=== PATIENT | male | born 1980 | race Caucasian/White ===

== ENCOUNTER 2020-01-16 07:14 | Emergency (ER) | payer BC ==
--- NOTE | 2020-01-16 07:30 | ER ---
Nurse's Notes [facility] Name: Rolly Chen Age: 39 yrs Sex: Male : 1980 Arrival Date: 01/16/2020 Time: 07:16 Bed 17 Private MD: Diagnosis: Cellulitis of face;Urticaria, unspecified Presentation: 01/15 07:23 Chief complaint: Patient states: rash on skin around eyes, started Tuesday, no other iw area affected. 07:23 Method Of Arrival: Ambulatory iw 07:23 Coronavirus screen: At this time, the client does not indicate any symptoms associated iw with coronavirus-19. Ebola Screen: Patient negative for fever greater than or equal to 101.5 degrees Fahrenheit, and additional compatible Ebola Virus Disease symptoms Patient denies exposure to infectious person. Patient denies travel to an Ebola-affected area in the 21 days before illness onset. No symptoms or risks identified at this time. Initial Sepsis Screen: Does the patient meet any 2 criteria? No. Patient's initial sepsis screen is negative. Does the patient have a suspected source of infection? No. Patient's initial sepsis screen is negative. Risk Assessment: Do you want to hurt yourself or someone else? Patient reports no desire to harm self or others. 07:23 Acuity: ROXANNE 5 iw 07:36 Onset of symptoms was January 12, 2020. iw Historical: - Allergies: 07:25 No Known Allergies; iw - Home Meds: 07:25 None [Active]; iw - PMHx: 07:25 None; iw - PSHx: 07:25 None; iw - Immunization history:: Adult Immunizations. - Social history:: Smoking status: . - Family history:: not pertinent. - Hospitalizations: : No recent hospitalization is reported. Screenin:26 Abuse screen: Denies threats or abuse. Denies injuries from another. Nutritional iw screening: No deficits noted. Tuberculosis screening: No symptoms or risk factors identified. Fall Risk None identified. Assessment: 07:25 General: Appears in no apparent distress. comfortable, Behavior is calm, cooperative. iw Pain: Denies pain. Neuro: Level of Consciousness is awake, alert, obeys commands, Oriented to person, place, time, situation, Moves all extremities. Full function. Cardiovascular: Patient's skin is warm and dry. Respiratory: Respiratory effort is even, unlabored, Respiratory pattern is regular, symmetrical. GI: No signs and/or symptoms were reported involving the gastrointestinal system. Derm: Skin is intact, Rash noted that is red, urticaria, on face. Musculoskeletal: Range of motion: intact in all extremities. Vital Signs: 07:23 BP 147 / 104; Pulse 98; Resp 16 S; Temp 98.0; Pulse Ox 100% on R/A; iw ED Course: 07:16 Patient arrived in ED. as 07:18 Josh Ruggiero MD is Attending Physician. rn 07:24 Triage completed. iw 07:25 Arm band placed on. iw 07:25 Patient has correct armband on for positive identification. iw 07:31 June Wise RN is Primary Nurse. iw 07:36 No provider procedures requiring assistance completed. Patient did not have IV access iw during this emergency room visit. Administered Medications: 07:31 Drug: Decadron 10 mg Route: IM; Site: right deltoid; iw 07:41 Follow up: Response: No adverse reaction iw 07:32 Drug: Bactrim (160 mg-800 mg (DS) 1 tablet Route: PO; iw 07:41 Follow up: Response: No adverse reaction iw Outcome: 07:29 Discharge ordered by . rn 07:36 Discharged to home ambulatory. iw 07:36 Condition: good 07:36 Discharge instructions given to patient, Instructed on discharge instructions, follow up and referral plans. Demonstrated understanding of instructions, follow-up care, medications, Prescriptions given X 2. 07:37 Patient left the ED. iw Signatures: Neisha Avendaño as June Wise, KAILA RN iw Josh Ruggiero MD MD rn
--- NOTE | 2020-01-16 07:30 | EDPHYS ---
Physician Documentation [facility] Name: Rolly Chen Age: 39 yrs Sex: Male : 1980 Arrival Date: 01/16/2020 Time: 07:16 Bed 17 Private MD: ED Physician Josh Ruggiero HPI: 01/15 07:25 This 39 yrs old Male presents to ER via Ambulatory with complaints of Rash. rn 07:25 The patient's rash thought to be caused by an unknown cause. The rash is located on the rn face. The rash can be described as erythematous, urticarial. 07:25 Onset: The symptoms/episode began/occurred 4 day(s) ago. Severity of symptoms: At their rn worst the symptoms were mild in the emergency department the symptoms are unchanged. The patient has not experienced similar symptoms in the past. Reports 4 days ago began to notice red splotches around eyes, feels burning and itchy, both eyes, no injury or splash/chemical exposure, concerned maybe glasses had something on them, vision ok. No fever. No rash anywhere else. + itchy. No medications or medical problems. . Historical: - Allergies: 07:25 No Known Allergies; iw - Home Meds: 07:25 None [Active]; iw - PMHx: 07:25 None; iw - PSHx: 07:25 None; iw - Immunization history:: Adult Immunizations. - Social history:: Smoking status: . - Family history:: not pertinent. - Hospitalizations: : No recent hospitalization is reported. ROS: 07:25 Constitutional: Negative for fever, chills, and weight loss, Eyes: Negative for injury, rn and discharge, Neck: Negative for injury, pain, and swelling, Cardiovascular: Negative for chest pain, palpitations, and edema, Respiratory: Negative for shortness of breath, cough, wheezing, and pleuritic chest pain, Abdomen/GI: Negative for abdominal pain, nausea, vomiting, diarrhea, and constipation, MS/Extremity: Negative for injury and deformity, Skin: + rash and redness around eyes. Neuro: Negative for headache, weakness, numbness, tingling, and seizure. Exam: 07:25 Constitutional: This is a well developed, well nourished patient who is awake, alert, rn and in no acute distress. Head/Face: Normocephalic, atraumatic. Eyes: Pupils equal round and reactive to light, extra-ocular motions intact. Lids and lashes normal. Conjunctiva and sclera are non-icteric and not injected. Cornea within normal limits. Bilateral periorbital areas with urticarial lesions, no pustules, no drainage, no fluctuance, + mild edema. ENT: No intraoral lesions. Respiratory: No increased work of breathing, no retractions or nasal flaring. Skin: Warm, dry Vital Signs: 07:23 BP 147 / 104; Pulse 98; Resp 16 S; Temp 98.0; Pulse Ox 100% on R/A; iw MDM: 07:18 Patient medically screened. rn 07:25 Differential diagnosis: allergic reaction, cellulitis, impetigo. Data reviewed: vital rn signs, nurses notes, and as a result, I will discharge patient. Counseling: I had a detailed discussion with the patient and/or guardian regarding: the historical points, exam findings, and any diagnostic results supporting the discharge/admit diagnosis, the need for outpatient follow up, to return to the emergency department if symptoms worsen or persist or if there are any questions or concerns that arise at home. Special discussion: I discussed with the patient/guardian in detail that at this point there is no indication for admission to the hospital. It is understood, however, that if the symptoms persist or worsen the patient needs to return immediately for re-evaluation. Administered Medications: 07:31 Drug: Decadron 10 mg Route: IM; Site: right deltoid; iw 07:41 Follow up: Response: No adverse reaction iw 07:32 Drug: Bactrim (160 mg-800 mg (DS) 1 tablet Route: PO; iw 07:41 Follow up: Response: No adverse reaction iw Disposition: 01/16/20 07:29 Discharged to Home. Impression: Cellulitis of face, Urticaria, unspecified. - Condition is Stable. - Discharge Instructions: Cellulitis, Adult, Rash. - Prescriptions for Prednisone 20 mg Oral Tablet - take 3 tablet by ORAL route once daily for 5 days; 15 tablet. Bactrim DS 800- 160 mg Oral Tablet - take 1 tablet by ORAL route every 12 hours for 10 days; 20 tablet. - Medication Reconciliation Form, Thank You Letter, Antibiotic Education, Prescription Opioid Use form. - Follow up: Private Physician; When: As needed; Reason: Recheck today's complaints, Re-evaluation by your physician. - Problem is new. - Symptoms are unchanged. Signatures: June Wise RN RN iw Josh Ruggiero MD MD internet marketing intern: (The following items were deleted from the chart) 07:37 07:29 01/16/2020 07:29 Discharged to Home. Impression: Cellulitis of face; Urticaria, iw unspecified. Condition is Stable. Forms are Medication Reconciliation Form, Thank You Letter, Antibiotic Education, Prescription Opioid Use. Follow up: Private Physician; When: As needed; Reason: Recheck today's complaints, Re-evaluation by your physician. Problem is new. Symptoms are unchanged. rn
[2020-01-16] MEDS ORDERED: dexAMETHasone 10 MG/ML VIAL ONE (07:39)
[2020-01-16] MEDS ORDERED: SMZ./TMP. 800/160 MG TABLET ONE (07:39)
[2020-01-16 07:41] VITALS: BP 147/104; TEMP 98; O2SAT 100
== END 2020-01-16 07:37 | disposition home or self-care (01) ==
LOC: ER 07:14
DX: L03.211 Cellulitis of face (principal); L50.9 Urticaria, unspecified
CPT/HCPCS: 96372; 99283; J1100

== ENCOUNTER 2020-03-12 12:46 | Emergency (ER) | payer BC ==
--- NOTE | 2020-03-12 14:02 | ER ---
Nurse's Notes [facility] Name: Rolly Chen Age: 39 yrs Sex: Male : 1980 Arrival Date: 03/12/2020 Time: 12:48 Bed 14 Private MD: Diagnosis: Allergic contact dermatitis Presentation: 03/12 13:09 Chief complaint: Patient states: "I have this rash popping up and I don't know why.". jd3 Coronavirus screen: At this time, the client does not indicate any symptoms associated with coronavirus-19. Ebola Screen: Patient negative for fever greater than or equal to 101.5 degrees Fahrenheit, and additional compatible Ebola Virus Disease symptoms. Initial Sepsis Screen: Does the patient meet any 2 criteria? No. Patient's initial sepsis screen is negative. Does the patient have a suspected source of infection? No. Patient's initial sepsis screen is negative. Risk Assessment: Do you want to hurt yourself or someone else? Patient reports no desire to harm self or others. Onset of symptoms was March 11, 2020. 13:09 Method Of Arrival: Ambulatory jd3 13:09 Acuity: ROXANNE 4 jd3 Historical: - Allergies: 13:10 No Known Allergies; jd3 - Home Meds: 13:10 None [Active]; jd3 - PMHx: 13:10 None; jd3 - PSHx: 13:10 left ankle; back; jd3 - Immunization history:: Adult Immunizations up to date. - Social history:: Smoking status: Patient denies any tobacco usage or history of. Screenin:50 Abuse screen: Denies threats or abuse. Denies injuries from another. Nutritional ca1 screening: No deficits noted. Tuberculosis screening: No symptoms or risk factors identified. Fall Risk None identified. Assessment: 13:50 General: Appears in no apparent distress. comfortable, Behavior is calm, cooperative, ca1 appropriate for age. Pain: Denies pain. Neuro: Level of Consciousness is awake, alert, obeys commands, Oriented to person, place, time, situation. Derm: Skin is intact, is healthy with good turgor, Skin is pink, warm \\T\\ dry. Rash noted that is red, urticaria, on right eye, left eye, right arm and left arm. Musculoskeletal: Circulation, motion, and sensation intact. Capillary refill < 3 seconds. 14:23 Reassessment: Patient appears in no apparent distress at this time. Patient is alert, ca1 oriented x 3, equal unlabored respirations, skin warm/dry/pink. Patient states feeling better. Vital Signs: 13:10 BP 130 / 90; Pulse 84; Resp 17 S; Temp 97.3(TE); Pulse Ox 98% on R/A; Weight 113.4 kg jd3 (R); Height 6 ft. 0 in. (182.88 cm) (R); Pain 0/10; 14:23 BP 126 / 84; Pulse 81; Resp 16 S; Pulse Ox 98% on R/A; ca1 13:10 Body Mass Index 33.91 (113.40 kg, 182.88 cm) jd3 ED Course: 12:48 Patient arrived in ED. as 13:10 Triage completed. jd3 13:12 Arm band placed on. jd3 13:46 Missy Elliott FNP-C is [facility]. kb 13:46 Josh Ruggiero MD is Attending Physician. kb 13:50 Patient has correct armband on for positive identification. Bed in low position. Call ca1 light in reach. Side rails up X 1. Pulse ox on. NIBP on. 13:53 Nicky Gongora RN is Primary Nurse. ca1 14:05 No provider procedures requiring assistance completed. Patient did not have IV access ca1 during this emergency room visit. Administered Medications: 14:03 Drug: SOLU-Medrol 125 mg Route: IM; Site: right gluteus; ca1 14:23 Follow up: Response: No adverse reaction ca1 Outcome: 14:01 Discharge ordered by . kb 14:25 Discharged to home ambulatory. ca1 14:25 Condition: stable 14:25 Discharge instructions given to patient, Instructed on discharge instructions, follow up and referral plans. medication usage, Demonstrated understanding of instructions, follow-up care, medications, Prescriptions given X 2. 14:26 Patient left the ED. ca1 Signatures: Missy Elliott FNP-C FNP-Ckb Martinez, Amelia as Davies, Jonathon, RN RN jd3 Nicky Gongora RN RN ca1 Corrections: (The following items were deleted from the chart) 13:13 13:10 Pulse 84bpm; Resp 17bpm; Pulse Ox 98% RA; Temp 97.3F Temporal; 113.4 kg Reported; jd3 Height 6 ft. 0 in. Reported; BMI: 33.9; Pain 0/10; jd3
--- NOTE | 2020-03-12 14:02 | EDPHYS ---
Physician Documentation [facility] Name: Rolly Chen Age: 39 yrs Sex: Male : 1980 Arrival Date: 03/12/2020 Time: 12:48 Bed 14 Private MD: ED Physician Josh Ruggiero HPI: 03/12 13:59 This 39 yrs old Male presents to ER via Ambulatory with complaints of Rash, kb Eye Swelling. 13:59 The patient's rash thought to be caused by an unknown cause. The rash is located on the kb right eye, left eye, right arm and left arm. The rash can be described as erythematous. Onset: The symptoms/episode began/occurred last night. Associated signs and symptoms: Pertinent positives: itching, Pertinent negatives: burning sensation, difficulty breathing, fever, nausea, Pain swelling of lips, swelling of throat, swelling of tongue, vomiting, wheezing. Severity of symptoms: At their worst the symptoms were mild in the emergency department the symptoms are unchanged. The patient has experienced a previous episode. The patient has not recently seen a physician. Pt reports he noticed itching to arms and eyes last night, this morning he had a rash to those areas. States he has had this before, came here and got a shot that helped a lot. Came in now before it got worse. Historical: - Allergies: 13:10 No Known Allergies; jd3 - Home Meds: 13:10 None [Active]; jd3 - PMHx: 13:10 None; jd3 - PSHx: 13:10 left ankle; back; jd3 - Immunization history:: Adult Immunizations up to date. - Social history:: Smoking status: Patient denies any tobacco usage or history of. ROS: 13:58 Constitutional: Negative for fever, chills, and weight loss, Cardiovascular: Negative kb for chest pain, palpitations, and edema, Respiratory: Negative for shortness of breath, cough, wheezing, and pleuritic chest pain, Abdomen/GI: Negative for abdominal pain, nausea, vomiting, diarrhea, and constipation, Back: Negative for injury and pain, MS/Extremity: Negative for injury and deformity, Neuro: Negative for headache, weakness, numbness, tingling, and seizure. 13:58 Skin: Positive for rash, of the right eye, left eye, right arm and left arm. Exam: 13:58 Constitutional: This is a well developed, well nourished patient who is awake, alert, kb and in no acute distress. Head/Face: Normocephalic, atraumatic. Chest/axilla: Normal chest wall appearance and motion. Nontender with no deformity. No lesions are appreciated. Cardiovascular: Regular rate and rhythm with a normal S1 and S2. No gallops, murmurs, or rubs. Normal PMI, no JVD. No pulse deficits. Respiratory: Lungs have equal breath sounds bilaterally, clear to auscultation and percussion. No rales, rhonchi or wheezes noted. No increased work of breathing, no retractions or nasal flaring. Abdomen/GI: Soft, non-tender, with normal bowel sounds. No distension or tympany. No guarding or rebound. No evidence of tenderness throughout. MS/ Extremity: Pulses equal, no cyanosis. Neurovascular intact. Full, normal range of motion. Neuro: Awake and alert, GCS 15, oriented to person, place, time, and situation. Cranial nerves II-XII grossly intact. Motor strength 5/5 in all extremities. Sensory grossly intact. Cerebellar exam normal. Normal gait. 13:58 Skin: rash a mild rash is noted, consistent with contact dermatitis, on the left arm and right arm and left eye and right eye. Vital Signs: 13:10 BP 130 / 90; Pulse 84; Resp 17 S; Temp 97.3(TE); Pulse Ox 98% on R/A; Weight 113.4 kg jd3 (R); Height 6 ft. 0 in. (182.88 cm) (R); Pain 0/10; 14:23 BP 126 / 84; Pulse 81; Resp 16 S; Pulse Ox 98% on R/A; ca1 13:10 Body Mass Index 33.91 (113.40 kg, 182.88 cm) jd3 MDM: 13:46 Patient medically screened. kb 13:58 Data reviewed: vital signs, nurses notes. Data interpreted: Pulse oximetry: on room air kb is 98 %. Interpretation: normal. Counseling: I had a detailed discussion with the patient and/or guardian regarding: the historical points, exam findings, and any diagnostic results supporting the discharge/admit diagnosis, the need for outpatient follow up, a family practitioner, to return to the emergency department if symptoms worsen or persist or if there are any questions or concerns that arise at home. Administered Medications: 14:03 Drug: SOLU-Medrol 125 mg Route: IM; Site: right gluteus; ca1 14:23 Follow up: Response: No adverse reaction ca1 Disposition: 16:31 Co-signature as Attending Physician, Josh Ruggiero MD. rn Disposition: 03/12/20 14:01 Discharged to Home. Impression: Allergic contact dermatitis. - Condition is Stable. - Discharge Instructions: Contact Dermatitis, [id number]. - Prescriptions for Pepcid 20 mg Oral Tablet - take 1 tablet by ORAL route every 12 hours for 5 days; 10 tablet. Prednisone 20 mg Oral Tablet - take 1 tablet by ORAL route once daily for 5 days; 5 tablet. - Medication Reconciliation Form, Thank You Letter, Antibiotic Education, Prescription Opioid Use form. - Follow up: Emergency Department; When: As needed; Reason: Worsening of condition. Follow up: Private Physician; When: 2 - 3 days; Reason: Recheck today's complaints, Continuance of care, Re-evaluation by your physician. Signatures: Missy Elliott, SAP HANA DEVELOPER-C SAP HANA DEVELOPER-Ckb Josh Ruggiero MD MD rn Davies, Jonathon, RN RN jd3 Nicky Gongora RN RN ca1 Corrections: (The following items were deleted from the chart) 14:26 14:01 03/12/2020 14:01 Discharged to Home. Impression: Allergic contact dermatitis. ca1 Condition is Stable. Forms are Medication Reconciliation Form, Thank You Letter, Antibiotic Education, Prescription Opioid Use. Follow up: Emergency Department; When: As needed; Reason: Worsening of condition. Follow up: Private Physician; When: 2 - 3 days; Reason: Recheck today's complaints, Continuance of care, Re-evaluation by your physician. kb
[2020-03-12] MEDS ORDERED: METHYLPREDNISOLONE 125 MG INJ ONE (14:13)
[2020-03-12 15:07] VITALS: TEMP 97.3; O2SAT 98
[2020-03-12 15:09] VITALS: BP 126/84
== END 2020-03-12 14:26 | disposition home or self-care (01) ==
LOC: ER 12:46
DX: L23.9 Allergic contact dermatitis, unspecified cause (principal)
CPT/HCPCS: 96372; 99283; J2930

== ENCOUNTER 2020-03-16 13:56 | Emergency (ER) | payer BC ==
[2020-03-16] MEDS ORDERED: dexAMETHasone 4 MG/ML VIAL ONE (14:33)
[2020-03-16] MEDS ORDERED: DIPHENHYDRAMINE 25 MG TAB/CAP ONE (14:33)
[2020-03-16] MEDS ORDERED: FAMOTIDINE 20 MG TAB ONE (14:33)
--- NOTE | 2020-03-16 16:17 | EDPHYS ---
Physician Documentation [facility] Name: Rolly Chen Age: 39 yrs Sex: Male : 1980 Arrival Date: 03/16/2020 Time: 13:58 Bed 18 Private MD: Ata Lombardi R ED Physician Deejay Muniz HPI: 03/16 14:31 This 39 yrs old Male presents to ER via Ambulatory with complaints of Rash. pm1 14:31 The patient's rash thought to be caused by an unknown cause. The rash is located on the pm1 chest, right arm, left arm and neck. The rash can be described as urticarial. Onset: The symptoms/episode began/occurred 5 day(s) ago. Associated signs and symptoms: Pertinent positives: itching, Pertinent negatives: fever, swelling of lips, swelling of throat, swelling of tongue, vomiting, wheezing. Severity of symptoms: in the emergency department the symptoms are worse rash appeared to bilateral arms. Treatment given at home: just finished prescription medications of steroid and pepcid today. The patient has been recently seen at the [facility] Emergency Department, last week, for similar complaints. Historical: - Allergies: 14:13 No Known Allergies; ll1 - PSHx: 14:13 left ankle; back; ll1 - Immunization history:: Flu vaccine is not up to date. - Social history:: Smoking status: Patient denies any tobacco usage or history of. ROS: 14:31 Constitutional: Negative for fever, chills, and weight loss, Cardiovascular: Negative pm1 for chest pain, palpitations, and edema, Respiratory: Negative for shortness of breath, cough, wheezing, and pleuritic chest pain, Abdomen/GI: Negative for abdominal pain, nausea, vomiting, diarrhea, and constipation. 14:31 Back: Negative for injury and pain, MS/Extremity: Negative for injury and deformity. pm1 14:31 Neuro: Negative for headache, weakness, numbness, tingling, and seizure. 14:31 Skin: Positive for rash, of the right arm and left arm and neck and chest. Exam: 14:31 Constitutional: This is a well developed, well nourished patient who is awake, alert, pm1 and in no acute distress. Head/Face: Normocephalic, atraumatic. 14:31 Cardiovascular: Exam negative for acute changes, Rate: normal, Rhythm: regular, Pulses: no pulse deficits are appreciated. 14:31 Respiratory: Exam negative for acute changes, respiratory distress, shortness of breath. 14:31 Skin: Appearance: normal except for affected area, consistent with urticaria, on the left arm and right arm and chest and neck. 14:31 Neuro: Exam negative for acute changes, Orientation: is normal, Mentation: is normal, Motor: is normal, moves all fours. Vital Signs: 14:13 BP 143 / 77; Pulse 100; Resp 18; Temp 98.0; Pulse Ox 100% on R/A; Pain 0/10; ll1 16:40 BP 157 / 101; Pulse 82; Resp 17; Pulse Ox 100% ; Pain 0/10; ll1 MDM: 14:08 Patient medically screened. pm1 16:16 Data reviewed: vital signs. Data interpreted: Pulse oximetry: on room air is 100 %. pm1 Interpretation: normal. Counseling: I had a detailed discussion with the patient and/or guardian regarding: the historical points, exam findings, and any diagnostic results supporting the discharge/admit diagnosis, the need for outpatient follow up, for definitive care, an allergy/front office specialist, to return to the emergency department if symptoms worsen or persist or if there are any questions or concerns that arise at home. Administered Medications: 14:31 Drug: Decadron 10 mg Route: IM; Site: right gluteus; ll1 16:30 Follow up: Response: No adverse reaction; RASS: Alert and Calm (0) ll1 14:31 Drug: Pepcid 20 mg Route: PO; ll1 16:40 Follow up: Response: No adverse reaction; RASS: Alert and Calm (0) ll1 14:31 Drug: Benadryl 25 mg Route: PO; ll1 16:40 Follow up: Response: No adverse reaction; RASS: Alert and Calm (0) ll1 Disposition: 03/17 08:58 Co-signature as Attending Physician, Deejay Muniz MD I agree with the assessment and richelle plan of care. Disposition: 03/16/20 16:17 Discharged to Home. Impression: Urticaria, unspecified. - Condition is Stable. - Discharge Instructions: Hives, Rash. - Prescriptions for Benadryl 25 mg Oral Capsule - take 1 capsule by ORAL route every 6 hours As needed; 30 tablet. Pepcid 20 mg Oral Tablet - take 1 tablet by ORAL route every 12 hours for 10 days; 20 tablet. Medrol (Rakesh) 4 mg Oral Tablets, Dose Pack - take 1 tablet by ORAL route as directed - follow package instructions; 1 packet. - Medication Reconciliation Form, Thank You Letter, Antibiotic Education, Prescription Opioid Use form. - Follow up: Emergency Department; When: As needed; Reason: Worsening of condition. Follow up: Private Physician; When: 2 - 3 days; Reason: Recheck today's complaints, Continuance of care, Re-evaluation by your physician. - Problem is new. - Symptoms have improved. Signatures: Deejay Muniz MD MD cha Marinas, Patrick, NP SHOES HAND SEWER pm1 Randal Otero RN RN ll1 Corrections: (The following items were deleted from the chart) 03/16 16:40 16:17 03/16/2020 16:17 Discharged to Home. Impression: Urticaria, unspecified. ll1 Condition is Stable. Forms are Medication Reconciliation Form, Thank You Letter, Antibiotic Education, Prescription Opioid Use. Follow up: Emergency Department; When: As needed; Reason: Worsening of condition. Follow up: Private Physician; When: 2 - 3 days; Reason: Recheck today's complaints, Continuance of care, Re-evaluation by your physician. Problem is new. Symptoms have improved. pm1
--- NOTE | 2020-03-16 16:17 | ER ---
Nurse's Notes [facility] Name: Rolly Chen Age: 39 yrs Sex: Male : 1980 Arrival Date: 03/16/2020 Time: 13:58 Bed 18 Private MD: Ata Lombardi R Diagnosis: Urticaria, unspecified Presentation: 03/16 14:13 Chief complaint: Patient states: Rash to upper body since last visit here. Rash has ll1 spread down both arms and into pelvic region. + itching. Coronavirus screen: Client denies travel out of the [place] in the last 14 days. At this time, the client does not indicate any symptoms associated with coronavirus-19. Ebola Screen: Patient denies travel to an Ebola-affected area in the 21 days before illness onset. Initial Sepsis Screen: Does the patient meet any 2 criteria? HR > 90 bpm. No. Patient's initial sepsis screen is negative. Does the patient have a suspected source of infection? Yes: Skin breakdown/wound. Risk Assessment: Do you want to hurt yourself or someone else? Patient reports no desire to harm self or others. Onset of symptoms is unknown. 14:13 Method Of Arrival: Ambulatory ll1 14:13 Acuity: ROXANNE 3 ll1 Triage Assessment: 14:15 General: Appears uncomfortable, Behavior is calm, cooperative, appropriate for age. ll1 Historical: - Allergies: 14:13 No Known Allergies; ll1 - PSHx: 14:13 left ankle; back; ll1 - Immunization history:: Flu vaccine is not up to date. - Social history:: Smoking status: Patient denies any tobacco usage or history of. Screenin:14 Abuse screen: Denies threats or abuse. Nutritional screening: No deficits noted. ll1 Tuberculosis screening: No symptoms or risk factors identified. Fall Risk None identified. Total [place] Fall Scale indicates No Risk (0-24 pts). Assessment: 14:15 General: Appears in no apparent distress. Behavior is calm, cooperative, appropriate ll1 for age. Pain: Denies pain. Neuro: No deficits noted. Cardiovascular: No deficits noted. Respiratory: No deficits noted. Derm: Rash noted that is red, raised, urticaria, Reports rash to arms/trunk that has spread to waistline now. Vital Signs: 14:13 BP 143 / 77; Pulse 100; Resp 18; Temp 98.0; Pulse Ox 100% on R/A; Pain 0/10; ll1 16:40 BP 157 / 101; Pulse 82; Resp 17; Pulse Ox 100% ; Pain 0/10; ll1 ED Course: 13:58 Patient arrived in ED. mr 13:58 Ata Lombardi MD is Private Physician. mr 14:08 [facility] pm1 14:08 Deejay Muniz MD is Attending Physician. pm1 14:08 Randal Otero RN is Primary Nurse. ll1 14:08 Arm band placed on Patient placed in an exam room, on a stretcher. ll1 14:14 Triage completed. ll1 14:15 Patient has correct armband on for positive identification. Bed in low position. Call ll1 light in reach. Side rails up X 1. Pulse ox on. NIBP on. 16:40 No provider procedures requiring assistance completed. Patient did not have IV access ll1 during this emergency room visit. Administered Medications: 14:31 Drug: Decadron 10 mg Route: IM; Site: right gluteus; ll1 16:30 Follow up: Response: No adverse reaction; RASS: Alert and Calm (0) ll1 14:31 Drug: Pepcid 20 mg Route: PO; ll1 16:40 Follow up: Response: No adverse reaction; RASS: Alert and Calm (0) ll1 14:31 Drug: Benadryl 25 mg Route: PO; ll1 16:40 Follow up: Response: No adverse reaction; RASS: Alert and Calm (0) ll1 Outcome: 16:17 Discharge ordered by . pm1 16:40 Patient left the ED. ll1 16:40 Discharged to home ambulatory. ll1 16:40 Condition: stable 16:40 Discharge instructions given to patient, Instructed on discharge instructions, follow up and referral plans. medication usage, Demonstrated understanding of instructions, follow-up care, medications, Prescriptions given X 3. Signatures: Danni Mcdaniel mr Mo Clemons, PRINTING MECHANIST PRINTING MECHANIST pm1 Randal Otero, KAILA RN 1
[2020-03-16 17:09] VITALS: BP 143/77; TEMP 98; O2SAT 100
== END 2020-03-16 16:40 | disposition home or self-care (01) ==
LOC: ER 13:56
DX: L50.9 Urticaria, unspecified (principal)
CPT/HCPCS: 96372; 99283; J1100